=== PATIENT | female | born 1975 | race Caucasian/White ===

== ENCOUNTER 2022-06-20 13:08 | Emergency (ER) | payer OTHER, SELFPAY ==
[2022-06-20 13:47] LABS: #Basophils 0.1 thou/uL (0.0-0.2); #Eosinphils 0.1 thou/uL (0.0-0.7); #Lymphocytes 2.4 thou/uL (1.20-3.40); #Monocytes 0.4 thou/uL (0.11-0.59); #Neutrophils 5.2 thou/uL (1.40-6.50); %Basophils 1.1 % (0.0-1.0); %Eosinophils 0.9 % (0.0-10.0); %Lymphocytes 29.4 % (21.0-51.0); %Neutrophils 63.5 % (42.0-75.0); Hemoglobin 17.3 g/dL (12.0-16.0); Mean Corpuscular HGB CONC 36.3 g/dL (32.0-36.0); Mean Corpuscular Hemoglobin 31.9 pg (27.0-31.0); Mean Corpuscular Volume 87.9 fL (78.0-98.0); Mean Platelet Volume 8.1 fL (7.4-10.4); Platelet Count 223 thou/uL (130-400); RBC Distribution Width 11.6 % (11.5-14.5); Red Blood Cell (RBC) Count 5.42 mill/uL (4.20-5.40); White Blood Cell (WBC) Count 8.2 thou/uL (4.8-10.8)
[2022-06-20] MEDS ORDERED: Ondansetron PF 4 MG/2 ML Vial ONE (13:51)
[2022-06-20] MEDS ORDERED: Morphine 4 MG/ML VIAL ONE (13:51)
[2022-06-20 14:09] LABS: ALT (SGPT) 19 U/L (8-55); AST (SGOT) 16 U/L (5-34); Albumin 4.4 g/dL (3.5-5.0); Alkaline Phosphatase 104 U/L (40-110); Anion Gap 18 mmol/L (10-20); BUN (Urea Nitrogen) 18 mg/dL (7.0-18.7); Bilirubin, Total 0.7 mg/dL (0.2-1.2); Calc. Creatinine Clearance 0 mL/min (70-130); Calcium 9.9 mg/dL (7.8-10.44); Carbon Dioxide 22 mmol/L (22-29); Chloride 98 mmol/L (98-107); Estimated GFR 98; Globulin 3.4 g/dL (2.4-3.5); Glucose 364 mg/dL (70-105); Lipase 141 U/L (8-78); Potassium 3.9 mmol/L (3.5-5.1); Protein, Total 7.8 g/dL (6.0-8.3); Sodium 134 mmol/L (136-145)
[2022-06-20 15:59] LABS: Bilirubin Negative (Negative); Blood, Urine Negative (Negative); Clarity Clear (Clear); Glucose, Urine (Dipstick) Greater than 1000 mg/dL (Negative); Ketone, Urine 150 mg/dL (Negative); Leukocyte Negative Leu/uL (Negative); Nitrite Negative (Negative); Protein, Urine (Dipstick) 20 mg/dL (Neg-Trace); Specific Gravity, Urine 1.044 (1.002-1.036); Urobilinogen Normal mg/dL (Less than 2); pH, Urine 5.5 (5.0-9.0)
== END 2022-06-20 17:06 | disposition home or self-care (01) ==
LOC: ERS 13:08
DX: K85.90 Acute pancreatitis without necrosis or infection, unspecified (principal); E11.9 Type 2 diabetes mellitus without complications; G40.909 Epilepsy, unspecified, not intractable, without status epilepticus; E78.1 Pure hyperglyceridemia; Z79.4 Long term (current) use of insulin; Z79.899 Other long term (current) drug therapy
CPT/HCPCS: 36415; 76705; 80053; 81003; 83690; 85025; 96374; 96375; J2270; J2405

== ENCOUNTER 2023-01-02 21:48 | Emergency (ER) | payer SELFPAY ==
[~2023-01-02 21:48] MED LIST: Iopamidol-370 76% 500 ML 1 ML ONE
[2023-01-02] MEDS ORDERED: Ketorolac Tromethamine 30 MG/ML VIAL ONE (22:43)
[2023-01-02 23:10] LABS: Anion Gap 18 mmol/L (10-20); BUN (Urea Nitrogen) 12 mg/dL (7.0-18.7); Calc. Creatinine Clearance 0 mL/min (70-130); Carbon Dioxide 21 mmol/L (22-29); Chloride 100 mmol/L (98-107); Estimated GFR 101; Potassium 3.8 mmol/L (3.5-5.1); Sodium 135 mmol/L (136-145)
[2023-01-02 23:11] LABS: #Basophils 0.1 thou/uL (0.0-0.2); #Eosinphils 0.1 thou/uL (0.0-0.7); #Lymphocytes 2.9 thou/uL (1.20-3.40); #Monocytes 0.6 thou/uL (0.11-0.59); %Basophils 0.9 % (0.0-1.0); %Lymphocytes 33.3 % (21.0-51.0); %Monocytes 6.7 % (0.0-10.0); %Neutrophils 58.1 % (42.0-75.0); Hemoglobin 14.1 g/dL (12.0-16.0); Mean Corpuscular HGB CONC 37.4 g/dL (32.0-36.0); Mean Corpuscular Hemoglobin 32.8 pg (27.0-31.0); Mean Corpuscular Volume 87.8 fl (78.0-98.0); Mean Platelet Volume 7.4 fL (7.4-10.4); Platelet Count 236 10x3/uL (130-400); RBC Distribution Width 11.4 % (11.5-14.5); Red Blood Cell (RBC) Count 4.28 mill/uL (4.20-5.40); White Blood Cell (WBC) Count 8.6 10x3/uL (4.8-10.8)
[2023-01-02 23:13] LABS: BHCG - Serum Negative (NEGATIVE); Pregs Control Background? CLEAR/WHITE (CLR/WHITE); Pregs Control Bar Appear? YES (CONTROL BAR)
[2023-01-02 23:16] LABS: Glucose 481 mg/dL (70-105)
[2023-01-02 23:49] LABS: Calcium 9.4 mg/dL (7.8-10.44)
[2023-01-03] MEDS ORDERED: Morphine 4 MG/ML VIAL ONE ×2 (00:06→02:32)
[2023-01-03] MEDS ORDERED: Lidocaine 1% w/Epinephrine 1:100K 20 ML VIAL ONE (01:59)
[2023-01-03] MEDS ORDERED: Acetaminophen 500 MG TAB ONE (02:21)
== END 2023-01-03 02:53 | disposition home or self-care (01) ==
LOC: ERS 21:48
DX: L02.31 Cutaneous abscess of buttock (principal); E11.65 Type 2 diabetes mellitus with hyperglycemia
CPT/HCPCS: 10060; 36415; 74177; 80048; 84703; 85025; 87070; 87077; 87186; 87205; 96372; 96374; J1885; J2270; Q9967

== ENCOUNTER 2023-01-04 10:52 | Emergency (ER) | payer SELFPAY ==
[2023-01-04 12:06] LABS: #Eosinphils 0.1 thou/uL (0.0-0.7); #Lymphocytes 1.9 thou/uL (1.20-3.40); #Monocytes 0.5 thou/uL (0.11-0.59); #Neutrophils 4.9 thou/uL (1.40-6.50); %Basophils 0.6 % (0.0-1.0); %Eosinophils 1.7 % (0.0-10.0); %Lymphocytes 25.8 % (21.0-51.0); %Monocytes 6.6 % (0.0-10.0); %Neutrophils 65.3 % (42.0-75.0); Hemoglobin 15.1 g/dL (12.0-16.0); Mean Corpuscular HGB CONC 36.3 g/dL (32.0-36.0); Mean Corpuscular Hemoglobin 31.7 pg (27.0-31.0); Mean Corpuscular Volume 87.5 fl (78.0-98.0); Mean Platelet Volume 7.7 fL (7.4-10.4); Platelet Count 245 10x3/uL (130-400); RBC Distribution Width 11.4 % (11.5-14.5); Red Blood Cell (RBC) Count 4.75 mill/uL (4.20-5.40); White Blood Cell (WBC) Count 7.5 10x3/uL (4.8-10.8)
[2023-01-04 12:20] LABS: ALT (SGPT) 19 U/L (8-55); AST (SGOT) 19 U/L (5-34); Albumin 4.2 g/dL (3.5-5.0); Alkaline Phosphatase 116 U/L (40-110); Anion Gap 14 mmol/L (10-20); BUN (Urea Nitrogen) 13 mg/dL (7.0-18.7); Bilirubin, Total 0.3 mg/dL (0.2-1.2); Calc. Creatinine Clearance 0 mL/min (70-130); Calcium 9.8 mg/dL (7.8-10.44); Carbon Dioxide 26 mmol/L (22-29); Chloride 100 mmol/L (98-107); Estimated GFR 97; Globulin 3.5 g/dL (2.4-3.5); Potassium 4.6 mmol/L (3.5-5.1); Protein, Total 7.7 g/dL (6.0-8.3); Sodium 135 mmol/L (136-145)
[2023-01-04 12:30] LABS: Glucose 438 mg/dL (70-105)
[2023-01-04] MEDS ORDERED: HYDROcodone/Acetaminophen 5/325 mg Tablet ONE (14:20)
== END 2023-01-04 14:27 | disposition home or self-care (01) ==
LOC: ERS 10:52
DX: L02.31 Cutaneous abscess of buttock (principal); E11.9 Type 2 diabetes mellitus without complications
CPT/HCPCS: 36415; 80053; 85025; 99283

== ENCOUNTER 2023-01-15 11:07 | Emergency (ER) | payer SELFPAY | END 2023-01-15 11:32 | disposition home or self-care (01) | LOC: ERS 11:07 | DX: Z48.03 Encounter for change or removal of drains (principal); E11.9 Type 2 diabetes mellitus without complications; I10 Essential (primary) hypertension | CPT/HCPCS: 99282 ==

== ENCOUNTER 2024-05-22 07:56 | Inpatient (IN) | payer OTHER, SELFPAY ==
[2024-05-22 08:21] LABS: #Basophils 0.05 10x3/uL (0.0-0.2); %Basophils 0.7 % (0.0-1.0); %Eosinophils 1.8 % (0.0-10.0); %Neutrophils 58.1 % (42.0-75.0); Hematocrit 42.9 % (36.0-47.0); Hemoglobin 15.2 g/dL (12.0-16.0); Mean Corpuscular HGB CONC 35.4 g/dL (32.0-36.0); Mean Corpuscular Hemoglobin 30.2 pg (27.0-31.0); Mean Corpuscular Volume 85.1 fL (78.0-98.0); Mean Platelet Volume 9.5 fL (7.4-10.4); Platelet Count 244 10x3/uL (130-400); RBC Distribution Width 12.2 % (11.5-14.5); Red Blood Cell (RBC) Count 5.04 mill/uL (4.20-5.40)
[2024-05-22 08:39] LABS: ALT (SGPT) 35 U/L (8-55); AST (SGOT) 26 U/L (5-34); Albumin 4.1 g/dL (3.5-5.0); Alkaline Phosphatase 75 U/L (40-110); Anion Gap 14 mmol/L (10-20); BUN (Urea Nitrogen) 15 mg/dL (7.0-18.7); Bilirubin, Total 0.4 mg/dL (0.2-1.2); Calc. Creatinine Clearance 0 mL/min (70-130); Calcium 9.4 mg/dL (7.8-10.44); Carbon Dioxide 21 mmol/L (22-29); Chloride 102 mmol/L (98-107); Estimated GFR 102; Globulin 3.3 g/dL (2.4-3.5); Glucose 296 mg/dL (70-105); Lipase 261 U/L (8-78); Potassium 4.1 mmol/L (3.5-5.1); Protein, Total 7.4 g/dL (6.0-8.3); Sodium 133 mmol/L (136-145)
[2024-05-22] MEDS ORDERED: Morphine 4 MG/ML VIAL ONE ×2 (09:07→12:01)
[2024-05-22] MEDS ORDERED: Ondansetron PF 4 MG/2 ML Vial ONE (09:07)
[2024-05-22 09:40] LABS: Bacteria/HPF None Seen HPF (None Seen); Bilirubin Negative (Negative); Blood, Urine Negative (Negative); CAUTI Indications for Culture Pelvic or flank pain; Clarity Clear (Clear); Glucose, Urine (Dipstick) Greater than 1000 mg/dL (Negative); Ketone, Urine Negative (Negative); Leukocyte 25 Leu/uL (Negative); Nitrite Negative (Negative); Protein, Urine (Dipstick) 10 mg/dL (Neg-Trace); RBC/HPF 0-3 HPF (0-3); Specific Gravity, Urine 1.025 (1.002-1.036); Squamous Epithelial 0-3 HPF (0-3); Urobilinogen Normal mg/dL (Less than 2); pH, Urine 5.5 (5.0-9.0)
[2024-05-22 09:41] LABS: Urine Culture Reflex No No
[2024-05-22] MEDS ORDERED: Ketorolac Tromethamine 30 MG (1 mL) VIAL ONE (12:01)
[2024-05-22] MEDS ORDERED: Iopamidol-370 76% 500 ML MDV (1 ML CHARGE) ONE (12:16)
[2024-05-22] MEDS ORDERED: Acetaminophen 650 MG Suppository PR PRN (12:30)
[2024-05-22] MEDS ORDERED: Acetaminophen 325 MG TAB PO PRN (12:30)
[2024-05-22 13:31] VITALS: BMI 29.7
[2024-05-22] MEDS ORDERED: clonazePAM 1 MG TAB PO PRN (13:57)
[2024-05-22] MEDS ORDERED: Glucagon 1 MG/ML KIT IM PRN (13:58)
[2024-05-22] MEDS ORDERED: Dextrose 50% Abboject 50 ML SYRINGE SLOW IVP PRN (13:58)
[2024-05-22] MEDS ORDERED: Dextrose 5% in Water 1,000 ML IV PRN (13:58)
[2024-05-22] MEDS: Morphine 4 MG/ML VIAL SLOW IVP PRN (15:19)
[2024-05-22] MEDS: Ondansetron PF 4 MG/2 ML Vial IVP PRN (15:26)
[2024-05-22] MEDS: Insulin Lispro 100 UNIT/ML 10 ML VIAL SC PRN (16:31)
[2024-05-22] MEDS: HYDROmorphone 0.5 MG/0.5 ML SYRINGE SLOW IVP SCH (19:14)
[2024-05-22] MEDS: lamoTRIgine 100 MG TAB PO SCH (19:15)
[2024-05-22] MEDS: Famotidine 20 MG TAB PO SCH (19:15)
[2024-05-23 05:44] LABS: #Basophils 0.06 10x3/uL (0.0-0.2); %Basophils 0.7 % (0.0-1.0); %Eosinophils 1.8 % (0.0-10.0); %Lymphocytes 35.1 % (21.0-51.0); %Monocytes 6.7 % (0.0-10.0); %Neutrophils 55.3 % (42.0-75.0); Hematocrit 37.8 % (36.0-47.0); Mean Corpuscular HGB CONC 34.4 g/dL (32.0-36.0); Mean Corpuscular Hemoglobin 29.3 pg (27.0-31.0); Mean Corpuscular Volume 85.1 fL (78.0-98.0); Platelet Count 220 10x3/uL (130-400); RBC Distribution Width 12.8 % (11.5-14.5); Red Blood Cell (RBC) Count 4.44 mill/uL (4.20-5.40)
[2024-05-23 06:22] LABS: ALT (SGPT) 32 U/L (8-55); AST (SGOT) 30 U/L (5-34); Albumin 3.4 g/dL (3.5-5.0); Alkaline Phosphatase 55 U/L (40-110); Anion Gap 11 mmol/L (10-20); BUN (Urea Nitrogen) 15 mg/dL (7.0-18.7); Bilirubin, Total 0.3 mg/dL (0.2-1.2); Calc. Creatinine Clearance 131 mL/min (70-130); Calcium 8.6 mg/dL (7.8-10.44); Carbon Dioxide 24 mmol/L (22-29); Chloride 106 mmol/L (98-107); Estimated GFR 107; Globulin 2.6 g/dL (2.4-3.5); Glucose 182 mg/dL (70-105); Potassium 3.5 mmol/L (3.5-5.1); Sodium 137 mmol/L (136-145)
[2024-05-23] MEDS: Aripiprazole 10 MG TAB PO SCH (08:48)
[2024-05-23] MEDS: Fenofibrate Nanocrystallized 145 MG TAB PO SCH (08:49)
[2024-05-23] MEDS: Amlodipine 5 MG TAB PO SCH (08:49)
[2024-05-23] MEDS: FLUoxetine HCl 20 MG CAP PO SCH (08:50)
[2024-05-23] MEDS: Pantoprazole DR 40 MG TAB PO SCH (08:50)
[2024-05-23] MEDS: Rosuvastatin 20 MG TAB PO SCH (08:50)
[2024-05-23] MEDS: Enoxaparin 40 MG (0.4 mL) SYRINGE SC SCH (08:51)
[2024-05-23 18:07] LABS: BHCG - Serum Negative (NEGATIVE); Pregs Control Background? CLEAR/WHITE (CLR/WHITE); Pregs Control Bar Appear? YES (CONTROL BAR)
[2024-05-23] MEDS: Morphine 4 MG/ML VIAL SLOW IVP PRN (18:26)
[2024-05-23] MEDS: Sodium Chloride 0.9% 1,000 ML IV SCH (19:47)
[2024-05-24 00:12] VITALS: TEMP 98.2
[2024-05-24] MEDS: Ondansetron ODT 4 MG TAB PO PRN (08:22)
[2024-05-24 09:54] LABS: #Basophils 0.03 10x3/uL (0.0-0.2); %Basophils 0.5 % (0.0-1.0); %Eosinophils 1.3 % (0.0-10.0); %Lymphocytes 29.5 % (21.0-51.0); %Monocytes 6.9 % (0.0-10.0); %Neutrophils 61.6 % (42.0-75.0); Hematocrit 39.8 % (36.0-47.0); Hemoglobin 13.8 g/dL (12.0-16.0); Mean Corpuscular HGB CONC 34.7 g/dL (32.0-36.0); Mean Corpuscular Hemoglobin 29.4 pg (27.0-31.0); Mean Corpuscular Volume 84.7 fL (78.0-98.0); Platelet Count 219 10x3/uL (130-400); RBC Distribution Width 12.3 % (11.5-14.5)
[2024-05-24] MEDS ORDERED: Cyclobenzaprine 10 MG TAB PO PRN (10:19)
[2024-05-24 10:23] LABS: ALT (SGPT) 33 U/L (8-55); AST (SGOT) 32 U/L (5-34); Albumin 3.8 g/dL (3.5-5.0); Alkaline Phosphatase 65 U/L (40-110); Anion Gap 11 mmol/L (10-20); BUN (Urea Nitrogen) 9 mg/dL (7.0-18.7); Bilirubin, Total 0.4 mg/dL (0.2-1.2); Calc. Creatinine Clearance 135 mL/min (70-130); Carbon Dioxide 26 mmol/L (22-29); Cardiac Risk 4.8 (Less than 4.5); Chloride 105 mmol/L (98-107); Cholesterol 155 mg/dl (< 200 Desired); Estimated GFR 108; Globulin 2.9 g/dL (2.4-3.5); Glucose 196 mg/dL (70-105); HDL Cholesterol 32 mg/dL (>60 Neg Risk); LDL Cholesterol, Calculated 50 mg/dL; Lipase 26 U/L (8-78); Potassium 3.7 mmol/L (3.5-5.1); Protein, Total 6.7 g/dL (6.0-8.3); Sodium 138 mmol/L (136-145); Triglycerides 364 mg/dL (Less than 150)
[2024-05-24] MEDS: Cyclobenzaprine 10 MG TAB PO SCH (10:52)
[2024-05-24 12:49] VITALS: BP 135/88
== END 2024-05-24 14:58 | disposition home or self-care (01) | DRG 440 ==
LOC: ERS 07:56 → SUATTDRO 07:56 → T4-A 13:24 → OBSVTOIN 05-23 15:33
PROVIDERS: ADMIT Family Medicine; ATTEND Internal Medicine
DX: K85.90 Acute pancreatitis without necrosis or infection, unspecified (principal); E11.9 Type 2 diabetes mellitus without complications; G40.909 Epilepsy, unspecified, not intractable, without status epilepticus; E78.1 Pure hyperglyceridemia; F31.9 Bipolar disorder, unspecified; I10 Essential (primary) hypertension; F41.8 Other specified anxiety disorders; Z79.84 Long term (current) use of oral hypoglycemic drugs; Z79.899 Other long term (current) drug therapy
CPT/HCPCS: 36415; 36416; 74177; 80053; 80061; 81001; 83690; 84703; 85025; J1170; J1650; J1815; J1885; J2270; J2405; J7050; Q0162; Q9967

== ENCOUNTER 2025-07-26 08:34 | Emergency (ER) | payer OTHER, SELFPAY ==
[2025-07-26 09:22] LABS: #Basophils 0.07 10x3/uL (0.0-0.2); #Eosinophils 0.12 10x3/uL (0.0-0.7); #Monocytes 0.41 10x3/uL (0.11-0.59); #Neutrophils 3.90 10x3/uL (1.40-6.50); %Basophils 1.1 % (0.0-1.0); %Eosinophils 1.8 % (0.0-10.0); %Lymphocytes 30.2 % (21.0-51.0); %Monocytes 6.3 % (0.0-10.0); %Neutrophils 60.0 % (42.0-75.0); Hematocrit 44.7 % (36.0-47.0); Hemoglobin 15.2 g/dL (12.0-16.0); Mean Corpuscular Hemoglobin 28.1 pg (27.0-31.0); Mean Corpuscular Volume 82.8 fL (78.0-98.0); Platelet Count 223 10x3/uL (130-400); Red Blood Cell (RBC) Count 5.40 mill/uL (4.20-5.40); White Blood Cell (WBC) Count 6.50 10x3/uL (4.8-10.8)
[2025-07-26 09:51] LABS: ALT (SGPT) 19 U/L (Less than 34); AST (SGOT) 28 U/L (11-34); Albumin 3.7 g/dL (3.1-4.5); Alkaline Phosphatase 90 U/L (40-110); Anion Gap 15 mmol/L (10-20); BUN (Urea Nitrogen) 8 mg/dL (9.8-20.1); Bilirubin, Total 0.2 mg/dL (0.3-1.2); Calc. Creatinine Clearance 0 mL/min (70-130); Calcium 9.2 mg/dL (7.8-10.44); Carbon Dioxide 22 mmol/L (22-29); Chloride 102 mmol/L (98-107); Globulin 3.3 g/dL (2.4-3.5); Glucose 447 mg/dL (70-105); Lipase 32 U/L (8-78); Potassium 4.5 mmol/L (3.5-5.1); Sodium 134 mmol/L (136-145)
[2025-07-26] MEDS ORDERED: HYDROmorphone 0.5 MG/0.5 ML SYRINGE ONE (10:11)
[2025-07-26] MEDS ORDERED: Ketorolac Tromethamine 30 MG (1 mL) VIAL ONE (10:11)
[2025-07-26] MEDS ORDERED: Ondansetron PF 4 MG/2 ML Vial ONE (10:12)
[2025-07-26] MEDS ORDERED: Iopamidol-370 76% 500 ML MDV (1 ML CHARGE) ONE (11:24)
== END 2025-07-26 13:30 | disposition home or self-care (01) ==
LOC: ERS 08:34
DX: R10.13 Epigastric pain (principal); E11.65 Type 2 diabetes mellitus with hyperglycemia; G40.909 Epilepsy, unspecified, not intractable, without status epilepticus; I10 Essential (primary) hypertension; Z55.6 Problems related to health literacy; Z79.899 Other long term (current) drug therapy
CPT/HCPCS: 36416; 71045; 74177; 80053; 83690; 83880; 84478; 84484; 85025; 93005; 96361; 96374; 96375; J1171; J1815; J1885; J2405; Q0162; Q9967